=== PATIENT | male | born 1970 | race Caucasian/White ===

== ENCOUNTER 2017-08-24 08:49 | Emergency (ER) | payer OTHER, SELFPAY | END 2017-08-24 09:52 | disposition home or self-care (01) | PROVIDERS: Family Provider Family Medicine | DX: J06.9 Acute upper respiratory infection, unspecified (principal) ==

== ENCOUNTER → 2018-08-11 14:02 | Outpatient (POV) | payer OTHER, BC, SELFPAY | PROVIDERS: Visit Provider Dermatology | DX: Z00.00 Encounter for general adult medical examination without abnormal findings (principal) ==

== ENCOUNTER → 2022-08-12 07:44 | Outpatient (CLI) | payer BC, SELFPAY ==
[2022-08-12 08:55] LABS: Chloride 106 mmol/L (98-107)
[2022-08-12 08:56] LABS: Potassium 4.3 mmoL/L (3.5-5.1); Sodium 142 mmol/L (136-145)
[2022-08-12 08:58] LABS: Alanine Aminotransferase 31 U/L (12-78); Alkaline Phosphatase 103 U/L (38-126); Anion Gap 10.3 mEq/L (5-15); Aspartate Amino Transferase 27 U/L (17-59); Bilirubin,Total 0.4 mg/dl (0.2-1.3); Blood Urea Nitrogen 19 mg/dl (9-20); Carbon Dioxide 30 mmol/L (22.0-30.0); Estimated Glomerular Filt Rate 89 ml/min (>60); GFR (African American) 108 ML/MIN (>60)
[2022-08-12 08:59] LABS: Albumin Level 4.4 g/dl (3.5-5.0); Albumin/Globulin Ratio 1.8 (1.1-1.8); Calcium 9.3 mg/dl (8.4-10.2); Globulin 2.4 g/dL (1.3-3.2); Glucose 95 mg/dl (74-100); Total Protein,Serum 6.8 g/dl (6.3-8.2)
== END ==
PROVIDERS: PCP Family Medicine; Visit Provider Orthopaedic Surgery
DX: Z51.81 Encounter for therapeutic drug level monitoring (principal)
CPT/HCPCS: 36415; 80053

== ENCOUNTER → 2022-08-27 08:01 | Outpatient (CLI) | payer BC, SELFPAY ==
[2022-08-27 08:48] LABS: Basophils # 0.1 K/mm3 (0-0.2); Basophils % 1.5 % (0.1-2.0); Eosinophils # 0.2 K/mm3 (0.0-0.4); Eosinophils % 2.7 % (0.1-12.0); Hematocrit 46.2 % (42.0-52.0); Hemoglobin 15.7 g/dL (14.1-18.0); Lymphocytes # 3.1 K/mm3 (0.7-4.5); Lymphocytes % 44.9 % (10-50); Mean Corpuscular HGB Conc 34.1 g/dL (31.8-35.4); Mean Corpuscular Hemoglobin 30.1 pg (27.0-31.2); Mean Corpuscular Volume 88.3 fl (80-94); Mean Platelet Volume 7.7 fl (7.4-10.4); Monocytes # 0.4 K/mm3 (0.1-1.0); Neutrophils # 3.1 K/mm3 (1.8-7.8); Neutrophils % 44.9 % (37.0-80.0); Platelet Count 317 K/mm3 (142-424); Red Blood Count 5.23 M/mm3 (4.60-6.20)
[2022-08-27 09:19] LABS: Anion Gap 13.5 mEq/L (5-15); Blood Urea Nitrogen 21 mg/dl (9-20); Carbon Dioxide 25 mmol/L (22.0-30.0); Chloride 104 mmol/L (98-107); Estimated Glomerular Filt Rate 79 ml/min (>60); GFR (African American) 95 ML/MIN (>60); Glucose 97 mg/dl (74-100); Potassium 4.5 mmoL/L (3.5-5.1); Sodium 138 mmol/L (136-145)
[2022-08-27 09:35] LABS: Hemoglobin A1C 5.2 % (4.0-6.0)
[2022-08-27 09:36] LABS: Erythrocyte Sedimentation Rate 6 mm/hr (0-20)
== END ==
PROVIDERS: PCP Family Medicine; Visit Provider Orthopaedic Surgery
DX: Z01.818 Encounter for other preprocedural examination (principal); Z87.898 Personal history of other specified conditions; R73.09 Other abnormal glucose
CPT/HCPCS: 36415; 80048; 83036; 85025; 85651

== ENCOUNTER → 2022-09-04 15:32 | Outpatient (CLI) | payer BC, SELFPAY ==
--- NOTE | 2022-09-04 15:43 | ECG_ITS ---
APPROVED REPORT Exam: Resting ECG HR:73 bpm ECG Measurements Heart Rate 73 AXES VA 159 P 29 QRSd 100 QRS -3 QT 352 T -1 QTc 377 Conclusion SINUS RHYTHM NORMAL ECG UNCONFIRMED REPORT Electronically signed by : Oleg Dunn MD 09/04/2022 21:45:37
--- NOTE | 2022-09-04 15:52 | XR_ITS ---
FINAL REPORT CLINICAL HISTORY: Patient is to have hip replacement surgery tomorrow morning. Screening exam for anesthesia. Non-smoker, no chest surgeries. FINDINGS: Two views of the chest were obtained. The heart size and pulmonary vascularity are within normal limits. The mediastinum is normal. No acute pulmonary abnormality is identified. There is no pneumothorax. The bony thorax is intact. IMPRESSION: No active cardiopulmonary disease. Reviewed, Interpreted and Dictated by Toan Sawyer III, MD Transcribed by Rachele Vaughan Authenticated and [facility]
== END ==
PROVIDERS: PCP Family Medicine; Visit Provider Orthopaedic Surgery
DX: R06.02 Shortness of breath (principal); Z01.818 Encounter for other preprocedural examination; R73.09 Other abnormal glucose; Z87.898 Personal history of other specified conditions
CPT/HCPCS: 71046; 93005